=== PATIENT | male | born 1995 | race Caucasian/White ===

== ENCOUNTER 2020-09-24 09:32 | Emergency (ER) | payer BC, SELFPAY ==
[2020-09-24 09:57] VITALS: BP 126/72; PULSE 71; RESP 16; TEMP 36.3; O2SAT 99; BMI 34.2
--- NOTE | 2020-09-24 10:20 | XR_ITS ---
EXAMINATION: XR LUMBOSACRAL SPINE WITH OBLIQUES CLINICAL INFORMATION: Back pain and right leg pain COMPARISON: None TECHNIQUE: AP, both oblique, and lateral views of the lumbar spine. Lateral view of the lumbosacral junction. FINDINGS: Bone alignment is normal. No fracture or dislocation is seen. Disc spaces are normal. No pars defect is seen. XR/XR lumbar spine 4V min IMPRESSION: Unremarkable examination.
--- NOTE | 2020-09-24 10:24 | ED.BACK ---
HPI - Back Pain/Injury General Chief Complaint: Back Pain/Injury <BELLA Cavazos Last Filed: 09/24/20 11:01> Stated Complaint: BACK PAIN,NO INJ <BELLA Cavazos Last Filed: 09/24/20 11:01> Time Seen by Provider: 09/24/20 10:10 <BELLA Cavazos Last Filed: 09/24/20 11:01> Source: patient <BELLA Cavazos Last Filed: 09/24/20 11:01> Mode of arrival: ambulatory <BELLA Cavazso Last Filed: 09/24/20 11:01> Limitations: language barrier (Cuban Speaking ) <BELLA Cavazos Last Filed: 09/24/20 11:01> History of Present Illness HPI Narrative: 25yoM c No Sig PMHx presenting to the ED c c/o Atraumatic mid lower back pain radiating to right lower leg since Thursday worse today. patient reports he has had this pain in the past although has never been seen for it. Denies any other symptoms complaints or concerns at this time. <BELLA Cavazos Last Filed: 09/24/20 11:01> Related Data Home Medications: Previous Rx's Medication Instructions Recorded diazepam [Valium] 5 mg PO TID PRN #10 tab 09/24/20 lidocaine 1 patch TOPICAL DAILY #15 ea NS 09/24/20 naproxen 500 mg PO BID PRN #10 tab NS 09/24/20 <BELLA Cavazos Last Filed: 09/24/20 11:01> Allergies/Adverse Reactions: Allergies Allergy/AdvReac Type Severity Reaction Status Date / Time No Known Allergies Allergy Verified 09/24/20 09:56 <BELLA Cavazos Last Filed: 09/24/20 11:01> Review of Systems Review of Systems: Constitutional : No trauma, No Weight loss, No Fever, No Chills, ENT/Mouth : No Hearing loss, No Ear Pain, No Nasal Congestion, No Sinus Pain, No Hoarseness, No sore throat, No Rhinorrhea, No Swallowing Difficulty Cardiovascular : No Chest Pain, No SOB Respiratory : No Cough, No Dyspnea Gastrointestinal : No Nausea, No Vomiting, No Diarrhea, No abdominal Pain, No Hematochezia, No Melena Genitourinary : No Dysuria, No Urinary Frequency, No Hematuria, No Urinary or Bowel Incontinence/retention Musculoskeletal : + Back pain, No neck pain, No joint stiffness, No joint swelling Skin : No Skin Lesions, No rash or signs of infection Neuro : No Weakness, No radiation, No Numbness, No Paresthesias, No headache, no loss of bowel or bladder incontinence, no saddle anesthesia Denies history of IV drug usage. <BELLA Cavazos - Last Filed: 09/24/20 11:01> Yes all other systems are reviewed and are negative <BELLA Cavazos - Last Filed: 09/24/20 11:01> FOR[facility]LY [facility] Past Medical History Attestation statement: The following information was validated with the patient. <BELLA Cavazos - Last Filed: 09/24/20 11:01> Medical History: Medical History No known health problems <BELLA Cavazos - Last Filed: 09/24/20 11:01> Social History Social History: Social History Advance Directives: No Advance Directives Information Provided: No <BELLA Cavazos - Last Filed: 09/24/20 11:01> Physical Exam Vital Signs: Vital Signs: Vital Signs Temp Pulse Resp BP Pulse Ox 09/24/20 09:57 97.4 F 71 16 126/72 99 Body Mass Index 34.2 vital signs have been reviewed as normal and appeared to be correct. Blood pressure normal. Heart rate normal. Respiration rate normal. Temperature normal. Oxygen saturation normal. <BELLA Cavazos - Last Filed: 09/24/20 11:01> Vital Signs: Vital Signs Temp Pulse Resp BP Pulse Ox 09/24/20 09:57 97.4 F 71 16 126/72 99 Body Mass Index 34.2 <Chris Alcala MD - Last Filed: 10/05/20 01:19> Appearance: Alert. Oriented X3. No acute distress. Head: Normal external exam. Normocephalic. Atraumatic. No Napoles signs noted. No raccoon eyes noted Eyes: PERRLA. EOMI. Conjunctiva and sclera normal. Eyelids normal. ENT: EAC normal. TM's Normal. Pharynx normal. Uvula midline. Moist mucous membranes. No trismus noted. No drooling noted. No muffled voice noted. Neck: Normal inspection. Neck supple. FROM. No adenopathy. Thyroid Normal. No meningeal signs. No neck mass noted. CVS: Normal heart rate and rhythm. Heart sound normal. No murmurs noted. Pulses normal throughout. Respiratory: No respiratory distress. Painless inspiration. Breath sounds normal. No wheezes/rales/rhonchi noted. Chest nontender. No accessory muscle usage noted or decreased air movement noted. Abdomen: Soft and nontender. Bowel sounds normal in all 4 quadrants. No distention noted. No organomegaly noted. No visible injury noted. Back: No CVA tenderness. Full range of motion noted. No obvious deformities, or edema. Mild para-spinal muscular tenderness from lumbar region to coccyx. Full ROM in back and lower extremities. 5/5 strength hip extension/flexion, abduction, adduction. Mild Lumbar pain with hip flexion against resistance. Straight leg raise test negative on right; Straight leg raise test negative on left; Reflexes normal ankle and knee bilaterally; EHL motor strength normal bilaterally Skin: Skin warm and dry. Normal skin color. Normal skin turgor. No rashes/lesions/lacerations noted. Extremities: No lower extremity edema. Extremities exhibit normal range of motion. Extremities nontender. Neuro: Oriented X 3. No motor deficit. No sensory deficit. Reflexes normal. <BELLA Cavazos - Last Filed: 09/24/20 11:01> Course Course Course Narrative: Pt c likely muscular pain, but could be herniated disc. Will obtain x-rays to evaluate for possible arthritis or any other acute processes. Neuro exam shows no deficits. Not c/w AAA/epidural abscess/dissection.No high risk Hx (Incont, fever, immunosupp, recent surgery/LP, coag, signif trauma, wt loss, puls mass, hx/o Ca, TB, or IVDU) to warrant MRI/CT today. Not c/w Pyelo/UTI/kidney stone/spinal fx. Not cauda equina syndrome. If x-ray within normal limits will DC home with symptomatic treatment on instructions return if any new or worsening symptoms to follow-up with primary care provider. Patient understands agrees the plan. <BELAL Cavazos - Last Filed: 09/24/20 11:01> I have reviewed the chart <Chris Alcala MD - Last Filed: 10/05/20 01:19> MDM - Back Pain/Injury Medical Records Attestation: I reviewed the patient's medical records. <BELLA Cavazos - Last Filed: 09/24/20 11:01> Imaging Data lumbar xray: Attestation: I personally reviewed and interpreted this imaging study as follows: <BELLA Cavazos - Last Filed: 09/24/20 11:01> Radiologist's impression: FINDINGS: Bone alignment is normal. No fracture or dislocation is seen. Disc spaces are normal. No pars defect is seen. XR/XR lumbar spine 4V min IMPRESSION: Unremarkable examination. <BELLA Cavazos Last Filed: 09/24/20 11:01> Discharge Plan Discharge Clinical Impression: Lumbar muscle pain, Lumbar radiculopathy <BELLA Cavazos - Last Filed: 09/24/20 11:01> Patient Disposition: Home, Self-Care <BELLA Cavazos - Last Filed: 09/24/20 11:01> Instructions: Lumbar Radiculopathy (ED), Lower Back Exercises (ED) <BELLA Cavazos - Last Filed: 09/24/20 11:01> Prescriptions: New diazepam [Valium] 5 mg tablet 5 mg PO TID PRN (Reason: muscle spasm) Qty: 10 RF: 0 lidocaine 5 % adhesive patch,medicated 1 patch topical DAILY Qty: 15 RF: 0 naproxen 500 mg tablet 500 mg PO BID PRN (Reason: pain) Qty: 10 RF: 0 <BELLA Cavazos Last Filed: 09/24/20 11:01> Referrals: Physician,None [Primary Care Provider] - 2 days ( Your primary care provider) <BELLA Cavazos Last Filed: 09/24/20 11:01> Stand Alone Forms: Work/School Release <BELLA Cavazos Last Filed: 09/24/20 11:01> Interventions: ED Discharge Assessment Last Done: 09/24/20 11:25 <BELLA Cavazos Last Filed: 09/24/20 11:01> Discharge Date/Time: 09/24/20 11:08 <BELLA Cavazos - Last Filed: 09/24/20 11:01> Print Language: Cuban <BELLA Cavazos - Last Filed: 09/24/20 11:01>
== END 2020-09-24 11:08 | disposition home or self-care (01) ==
PROVIDERS: Emergency Provider Emergency Medicine
DX: M54.16 Radiculopathy, lumbar region (principal); M79.604 Pain in right leg; Z79.899 Other long term (current) drug therapy
CPT/HCPCS: 72110; 99283

== ENCOUNTER 2020-11-30 14:41 | Outpatient (REF) | payer BC, SELFPAY | END 2020-11-30 14:42 | disposition home or self-care (01) | LOC: HO.LAB 14:41 | PROVIDERS: Visit Provider Internal Medicine | DX: Z20.822 Contact with and (suspected) exposure to COVID-19 (principal) | CPT/HCPCS: 36415; C9803; U0003 ==